=== PATIENT | female | born 1995 | race Caucasian/White ===

== ENCOUNTER 2023-01-04 10:40 | Emergency (ER) | payer OTHER ==
[~2023-01-04] VITALS: Ht 165.1 cm; Wt 65.0 kg
[2023-01-04 11:16] VITALS: BP 109/77
[2023-01-04] MEDS ORDERED: CYCL-1 PO (13:58)
[2023-01-04] MEDS ORDERED: cyclobenzaprine 10mg tablet PO ONE (14:05)
[2023-01-04] MEDS ORDERED: ibuprofen 200mg tablet PO ONE (14:05)
== END 2023-01-04 14:25 | disposition home or self-care (01) ==
LOC: ER 10:41
DX: S16.1XXA Strain of muscle, fascia and tendon at neck level, initial encounter (principal); W18.39XA Other fall on same level, initial encounter; Y93.89 Activity, other specified; Y92.89 Other specified places as the place of occurrence of the external cause; Y99.8 Other external cause status
CPT/HCPCS: 99283